=== PATIENT | female | born 2000 | race Caucasian/White ===

== ENCOUNTER 2024-12-20 11:30 | Observation (INO) ==
[2024-12-20 12:22] LABS: Basophils # (Auto) 0.07 K/mcL (0.00-0.30); Eosinophils # (Auto) 0.11 K/mcL (0.00-0.70); Eosinophils % (Auto) 1.6 % (0.0-7.0); Hematocrit 46.9 % (34.1-44.9); Hemoglobin 15.4 g/dL (11.2-15.7); Lymphocytes # (Auto) 2.09 K/mcL (1.50-4.80); Lymphocytes % (Auto) 29.7 % (15.5-49.0); Mean Cell Volume 83.2 fL (80.0-100.0); Mean Corpuscular HGB Conc 32.8 g/dL (31.0-36.0); Mean Platelet Volume 9.8 fL (8.8-12.5); Monocytes # (Auto) 0.36 K/mcL (0.10-0.90); Monocytes % (Auto) 5.1 % (1.0-12.0); Neutrophils % (Auto) 62.3 % (38.0-78.0); Platelet Count 354 K/mcL (140-440); RBC 5.64 M/mcL (3.59-5.38)
[2024-12-20 12:31] LABS: HCG,Serum Negative
[2024-12-20] MEDS: ONDANSETRON 4 MG/2 ML VIAL IV ONE ×2 (12:35→13:30)
[2024-12-20] MEDS: 0.9 % SODIUM CHLORIDE 1,000 ML IV ONE (12:35)
[2024-12-20 12:42] LABS: ALT/SGPT 694 U/L (<40); AST/SGOT 405 U/L (<32); Albumin 4.3 gm/dL (3.2-5.2); Albumin/Globulin Ratio 1.2 (1.0-2.3); Alkaline Phosphatase 151 U/L (39-117); Bilirubin,Total 2.9 mg/dL (0.1-1.0); Blood Urea Nitrogen 10 mg/dL (6-20); Carbon Dioxide 24 mmol/L (22-30); Chloride 100 mmol/L (96-108); Globulin 3.6 gm/dL (2.2-3.7); Glomerular Filtration Rate 102; Glucose 116 mg/dL (70-105); Potassium 4.1 mmol/L (3.3-5.1); Sodium 136 mmol/L (133-145)
[2024-12-20 13:28] LABS: Appearance,Urine Clear (Clear); Bacteria,Urine Few /hpf (0); Bilirubin,Urine Large mg/dL (Negative); Color,Urine Amber; Glucose,Urine (UA) 100 mg/dL (Negative); Ketones,Urine Trace mg/dL (Negative); Leukocyte Esterase,Urine Trace /uL (Negative); Nitrate,Urine Negative (Negative); Protein,Urine 30 mg/dL (Negative); Specific Gravity,Urine 1.025 (1.000-1.035); Urine Blood Moderate ery/mcL (Negative); Urine RBC 0 /hpf (0-3); Urine Squamous Epithelial Cell 5 /hpf (0-4); Urine WBC 1 /hpf (0-4); Urine Waxy Cast 2 /lph (0-0)
[2024-12-20] MEDS ORDERED: PROCHLORPERAZINE 10 MG/2 ML VIAL IV PRN (15:15)
[2024-12-20] MEDS ORDERED: morphine 4 MG/ML VIAL IV PRN (15:15)
[2024-12-20] MEDS: ceFAZolin 3 GM in DEXTROSE 5% IN WATER 50 ML IV SCH (16:31)
[2024-12-20] MEDS: 0.9 % SODIUM CHLORIDE 1,000 ML IV SCH (17:39)
[2024-12-20] MEDS: DOCUSATE SODIUM 100 MG CAPSULE PO SCH (20:13)
[2024-12-20] MEDS: SENNOSIDES 1 TABLET PO SCH (20:14)
[2024-12-20] MEDS: 0.9 % SODIUM CHLORIDE 10 ML SYRINGE IV SCH (20:15)
[2024-12-21 06:05] LABS: ALT/SGPT 515 U/L (<40); AST/SGOT 230 U/L (<32); Albumin 3.6 gm/dL (3.2-5.2); Albumin/Globulin Ratio 1.3 (1.0-2.3); Alkaline Phosphatase 128 U/L (39-117); Bilirubin,Total 2.5 mg/dL (0.1-1.0); Blood Urea Nitrogen 9 mg/dL (6-20); Calcium 8.6 mg/dL (8.6-10.4); Carbon Dioxide 25 mmol/L (22-30); Chloride 103 mmol/L (96-108); Globulin 2.7 gm/dL (2.2-3.7); Glomerular Filtration Rate 120; Glucose 89 mg/dL (70-105); Potassium 4.2 mmol/L (3.3-5.1); Sodium 138 mmol/L (133-145)
[2024-12-21 07:23] LABS: Hematocrit 41.5 % (34.1-44.9); Hemoglobin 13.3 g/dL (11.2-15.7); Mean Cell Volume 85.9 fL (80.0-100.0); Mean Platelet Volume 9.8 fL (8.8-12.5); Platelet Count 279 K/mcL (140-440); RBC 4.83 M/mcL (3.59-5.38); Red Cell Distribution Width 13.1 % (11.5-14.5)
[2024-12-21 09:17] LABS: Lymphocytes % 35 % (15-49); Monocytes % (Manual) 10 % (1-12); Platelet Estimate NORMAL (Normal); RBC Morphology NORMAL (Normal); Reactive Lymphocytes 3 % (0-2); Segmented Neutrophils % 52 % (38-78)
[2024-12-21] MEDS: ceFAZolin 3 GM in DEXTROSE 5% IN WATER 50 ML IV SCH (12:35)
[2024-12-21] MEDS ORDERED: ROCURONIUM 10 MG/ML ML IV ONE (12:41)
[2024-12-21] MEDS ORDERED: SUGAMMADEX SODIUM 200 MG/2 ML VIAL IV ONE (12:42)
[2024-12-21] MEDS ORDERED: PROPOFOL 200 MG/20 ML VIAL IV ONE (12:42)
[2024-12-21] MEDS ORDERED: fentaNYL 100 MCG/2 ML VIAL ONE ×2 (12:42→14:43)
[2024-12-21] MEDS ORDERED: KETAMINE 50 MG/ML Syringe IV ONE (12:42)
[2024-12-21] MEDS ORDERED: LIDOCAINE 2% PF 5 ML VIAL ONE (12:43)
[2024-12-21] MEDS ORDERED: DEXAMETHASONE 10 MG/ML VIAL ONE (12:46)
[2024-12-21] MEDS ORDERED: GLYCOPYRROLATE 0.2 MG/ML VIAL IV ONE (12:46)
[2024-12-21] MEDS ORDERED: MAGNESIUM SULFATE 2 GM/50 ML BAG IV ONE (12:46)
[2024-12-21] MEDS ORDERED: ONDANSETRON 4 MG/2 ML VIAL ONE (12:46)
[2024-12-21] MEDS: IOHEXOL 300 10 ML VIAL IV ONE (14:25)
[2024-12-21] MEDS ORDERED: diphenhydrAMINE 50 MG/ML VIAL IV PRN (14:39)
[2024-12-21] MEDS ORDERED: MEPERIDINE 25 MG/ML VIAL IV PRN (14:39)
[2024-12-21] MEDS ORDERED: ONDANSETRON 4 MG/2 ML VIAL IV PRN (14:39)
[2024-12-21] MEDS ORDERED: fentaNYL 100 MCG/2 ML VIAL IV PRN (14:39)
[2024-12-21] MEDS ORDERED: LACTATED RINGERS 250 ML IV PRN (14:39)
[2024-12-21] MEDS ORDERED: IPRATROPIUM/ALBUTEROL 3 ML AMPUL.NEB NEB PRN (14:39)
[2024-12-21] MEDS ORDERED: NALOXONE HCL 0.4 MG/ML VIAL IV PRN (14:39)
[2024-12-21] MEDS: ACETAMINOPHEN 1,000 MG/100 ML BAG IV ONE (15:07)
[2024-12-21] MEDS: METHOCARBAMOL 1,000 MG/10 ML VIAL IV PRN (15:21)
[2024-12-21] MEDS: HYDROmorphone 1 MG/ML SYRINGE IV PRN (17:11)
[2024-12-21] MEDS: LACTATED RINGERS 1,000 ML IV SCH (17:21)
[2024-12-21] MEDS: ONDANSETRON 4 MG/2 ML VIAL IV PRN (18:57)
[2024-12-21] MEDS: HYDROcodone/APAP 5/325MG TABLET PO PRN (23:42)
[2024-12-22] MEDS: ACETAMINOPHEN 325 MG TABLET PO PRN (05:14)
[2024-12-22 06:11] LABS: Basophils # (Auto) 0.01 K/mcL (0.00-0.30); Basophils % (Auto) 0.1 % (0.0-2.0); Eosinophils # (Auto) 0 K/mcL (0.00-0.70); Eosinophils % (Auto) 0 % (0.0-7.0); Hematocrit 40.5 % (34.1-44.9); Hemoglobin 13.1 g/dL (11.2-15.7); Lymphocytes # (Auto) 1.89 K/mcL (1.50-4.80); Lymphocytes % (Auto) 21.5 % (15.5-49.0); Mean Cell Volume 84.9 fL (80.0-100.0); Mean Corpuscular HGB Conc 32.3 g/dL (31.0-36.0); Mean Platelet Volume 9.9 fL (8.8-12.5); Monocytes # (Auto) 0.33 K/mcL (0.10-0.90); Monocytes % (Auto) 3.8 % (1.0-12.0); Neutrophils % (Auto) 74.4 % (38.0-78.0); Platelet Count 313 K/mcL (140-440); RBC 4.77 M/mcL (3.59-5.38); Red Cell Distribution Width 13.3 % (11.5-14.5); WBC 8.8 K/mcL (4.5-11.0)
[2024-12-22 06:35] LABS: ALT/SGPT 471 U/L (<40); AST/SGOT 240 U/L (<32); Albumin 3.7 gm/dL (3.2-5.2); Albumin/Globulin Ratio 1.3 (1.0-2.3); Alkaline Phosphatase 140 U/L (39-117); Bilirubin,Total 2.7 mg/dL (0.1-1.0); Blood Urea Nitrogen 7 mg/dL (6-20); Calcium 8.6 mg/dL (8.6-10.4); Carbon Dioxide 22 mmol/L (22-30); Chloride 102 mmol/L (96-108); Globulin 2.8 gm/dL (2.2-3.7); Glomerular Filtration Rate 120; Glucose 111 mg/dL (70-105); Sodium 136 mmol/L (133-145)
[2024-12-22 07:40] VITALS: TEMP 98.4; O2SAT 99
== END 2024-12-22 10:27 | disposition home or self-care (01) ==
LOC: ED 11:30 → MEDSUR 11:30
PROVIDERS: ADMIT Surgery; ATTEND Surgery